=== PATIENT | male | born 1975 | race Caucasian/White ===

== ENCOUNTER → 2021-03-27 | Outpatient (CLI) | payer OTHER | LOC: EMI 03-20 10:00 | DX: G43.009 Migraine without aura, not intractable, without status migrainosus (principal); G44.89 Other headache syndrome; F07.81 Postconcussional syndrome; R90.89 Other abnormal findings on diagnostic imaging of central nervous system; J34.89 Other specified disorders of nose and nasal sinuses | CPT/HCPCS: 70551 ==